=== PATIENT | female | born 1960 | race African-American/Black ===

== ENCOUNTER 2025-01-13 13:44 | Outpatient (RCR) | payer OTHER, SELFPAY | END 2025-04-07 09:55 | disposition home or self-care (01) | LOC: ANHDMC 13:44 | PROVIDERS: PCP Nurse Practitioner Family; Visit Provider Internal Medicine | DX: E11.65 Type 2 diabetes mellitus with hyperglycemia (principal); Z71.89 Other specified counseling | CPT/HCPCS: G0108 ==